=== PATIENT | female | born 1945 | race Caucasian/White ===

== ENCOUNTER 2018-03-11 10:49 | Emergency (ER) | payer MEDICARE ==
[~2018-03-11] VITALS: Ht 167.6 cm; Wt 68.0 kg
--- NOTE | ~2018-03-11 | EKG ---
[place], [place] ELECTROCARDIOGRAM REPORT NAME: BRENNAN MASON UNIT #: [id number] ROOM: DOCTOR: EPIPHANY DRAFT REPORT BIRTHDATE: [birth year] [facility] Test Date: 2018-03-11 Test Time: 11:54:50 Pat Name: BRENNAN MASON Department: Room: Gender: F Technical Support Assistant: Hodan Aviles : 1945 Requested By: NICOL MOSLEY Order Number: [id number] Reading MD: Vince Zamudio MD Measurements Intervals [place] Rate: 64 P: -17 [place]: 178 QRS: -12 QRSD: 100 T: 45 QT: 385 QTc: 398 Interpretive Statements Sinus rhythm Left ventricular hypertrophy Electronically Signed On 03-11-2018 16:51:05 PDT by Vince Zamudio MD CM:EKGRPT:ELECTROCARDIOGRAM REPORT [id number] NICOL VO DRAFT REPORT NICOL MOSLEY M.D.
[2018-03-11] MEDS ORDERED: LISINOPRIL2.5 MG PO (11:05)
[2018-03-11] MEDS ORDERED: LIPITOR10 MG PO (11:06)
[2018-03-11] MEDS ORDERED: LEVOTHYROXINE50 MCG PO (11:06)
[2018-03-11 12:06] LABS: BASO # 0.1 10*3/uL (0.0-0.1); BASO % 0.6 % (0.0-1.0); EOS # 0.3 10*3/uL (0.0-0.4); EOS % 4.1 % (1.0-4.0); HEMOGLOBIN 13.1 g/dl (12.0-16.0); LYMPH # 1.8 10*3/uL (1.3-4.4); LYMPH % 23.2 % (27.0-41.0); MEAN CELL VOLUME 94.5 fl (81.0-99.0); MEAN CORPUSCULAR HGB 30.2 pg (27.0-31.0); MEAN PLATELET VOLUME 10.6 fl (9.6-12.3); MONO # 0.4 10*3/uL (0.1-1.0); NEUT # 5.2 10*3/uL (2.3-7.9); NEUT % 66.8 % (47.0-73.0); PLATELET COUNT AUTOMATED 255 10*3/uL (130-400); RED BLOOD COUNT 4.34 10*6/uL (4.10-5.10); RED CELL DISTRI WIDTH 12.5 % (0-14.5); WHITE BLOOD COUNT 7.8 10*3/uL (4.8-10.8)
[2018-03-11 12:21] LABS: ALBUMIN 3.5 gm/dl (3.1-4.5); ALKALINE PHOSPHATASE 111 U/L (45-117); BUN 12 mg/dl (7-24); CHLORIDE 106 mmol/L (98-107); CREATININE 0.74 mg/dL (0.55-1.02); POTASSIUM 4.6 mmol/L (3.5-5.1); SGOT/AST 12 IU/L (3-35); SGPT/ALT 17 U/L (12-78); SODIUM 141 mmol/L (136-145); TOTAL PROTEIN 7.2 gm/dL (6.4-8.2)
== END 2018-03-11 13:43 | disposition home or self-care (01) ==
LOC: ED 10:49
PROVIDERS: Emergency Medicine
DX: R55 Syncope and collapse (principal); Z88.0 Allergy status to penicillin; Z91.041 Radiographic dye allergy status; Z79.899 Other long term (current) drug therapy